=== PATIENT | male | born 1960 | race Caucasian/White ===

== ENCOUNTER 2016-11-19 15:04 | Emergency (ER) | payer MEDICARE ==
[~2016-11-19] VITALS: Ht 182.9 cm; Wt 106.6 kg
[~2016-11-19 15:04] MED LIST: ADDERAL20 MG ORAL; CIPROFLOXACIN500 M2 ORAL; KEFLEX500 MG ORAL; LEVOXYL50 MCG ORAL; METRONIDAZOLE500 MG ORAL; NORCO1 E1 ORAL; STRIBILD TABLE1 EACH PO; UNOBMED; VICODIN ES 7.51 EAC1 ORAL; ZOFRAN ODT4 MG ORAL
[2016-11-19] MEDS ORDERED: Dicyclomine HCl 10mg/5ml oral soln ORAL ONE (15:45)
[2016-11-19] MEDS ORDERED: Mylanta II UD 30ml ORAL ONE (15:45)
[2016-11-19] MEDS ORDERED: Lidocaine 2% Visc 15ml soln ORAL ONE (15:45)
[2016-11-19] MEDS ORDERED: Famotidine 20 MG/ 2ML VIAL IVP ONE (15:45)
[2016-11-19 16:30] LABS: BASOPHILS % (AUTO) 1.1 % (0.0-2.0); EOSINOPHILS % (AUTO) 0.5 % (0.0-3.0); LYMPHOCYTES % (AUTO) 22.1 % (20.0-45.0); MEAN CORPUSCULAR HGB CONC 37.4 G/DL (32.0-36.0); MEAN CORPUSCULAR VOLUME 93 FL (80-99); MEAN PLATELET VOLUME 6.8 FL (6.5-10.1); MONOCYTES % (AUTO) 9.1 % (1.0-10.0); NEUTROPHILS % (AUTO) 67.2 % (45.0-75.0); PLATELET COUNT 271 K/UL (150-450); RED BLOOD COUNT 5.35 M/UL (4.70-6.10); WHITE BLOOD COUNT 10.8 K/UL (4.8-10.8)
[2016-11-19 16:49] LABS: APPEARANCE,URINE CLEAR; KETONES,URINE 1+ (NEGATIVE); LEUKOCYTE ESTERASE ,URINE 1+ (NEGATIVE); NITRITE,URINE NEGATIVE (NEGATIVE); PH,URINE 5 (4.5-8.0); PROTEIN,URINE 2+ (NEGATIVE); UROBILINOGEN,URINE 1 MG/DL (0.0-1.0)
[2016-11-19 16:53] LABS: AMORPHOUS SEDIMENT,UR FEW /LPF; BACTERIA,URINE MODERATE /HPF; CALCIUM OXALATE CRYSTALS,UR FEW /LPF; RBC,URINE 0-2 /HPF (0 - 0)
[2016-11-19 16:54] LABS: ICTOTEST NEGATIVE; MUCUS,URINE FEW /LPF (NONE/OCC)
[2016-11-19 17:05] LABS: CREATININE 1.3 mg/dL (0.7-1.2); GLOMERULAR FILTRATION RATE 57.5 mL/min (>60); TOTAL PROTEIN 8.8 g/dL (6.6-8.7)
[2016-11-19 17:06] LABS: ALBUMIN/GLOBULIN RATIO 1.2 (1.0-2.7); POTASSIUM 3.9 mEQ/L (3.4-4.9)
[2016-11-19 17:22] LABS: BILIRUBIN,DIRECT 0.2 mg/dL (0.1-0.3)
[2016-11-19 17:28] VITALS: BP 121/76
[2016-11-19] MEDS ORDERED: ZOFRAN ODT4 MG ORAL (17:46)
[2016-11-19] MEDS ORDERED: BENTYL10 MG ORAL (17:46)
[2016-11-19] MEDS ORDERED: CIPROFLOXACIN500 M2 ORAL (17:46)
[2016-11-19 18:19] VITALS: BP 121/76
--- NOTE | 2016-11-19 19:43 | Emergency Room Report ---
History of Present Illness General Chief Complaint: Diarrhea Source: Patient Present Illness HPI 56-year-old male presents to ED with abdominal pain vomiting diarrhea times one week. States he likely got it from his roommate who presented with the same symptoms a few days earlier. Patient notes cramping abdominal pain, 5/10, nonradiating. With multiple episodes of vomiting and diarrhea. Denies fevers or chills. Denies chest pain or shortness of breath. Denies recent antibiotic use. Denies recent travel. Patient does note history of HIV and states he is compliant with his medications. Has good CD4 count. PMD is Dr. Smith . No other aggravating or relieving factors. Denies any other associated symptoms Allergies: Coded Allergies: No Known Allergies (Unverified , 03/12/13) Patient History Past Medical History: HIV Past Surgical History: none Pertinent Family History: none Social History: Denies: alcohol use, drug use, smoking Immunizations: UTD Reviewed Nursing Documentation: PMH: Agreed, PSxH: Agreed Nursing Documentation-PMH Past Medical History: No History, Except For Hx Cardiac Problems: No - AIDS Hx Cancer: No Hx Gastrointestinal Problems: No Hx Neurological Problems: Yes - headaches, head trauma 1980, frontal encephalopathy Review of Systems All Other Systems: negative except mentioned in HPI Physical Exam Vital Signs Date Time Temp Pulse Resp B/P Pulse Ox O2 Delivery O2 Flow Rate FiO2 11/19/16 15:09 97.9 105 20 114/71 98 Room Air Sp02 EP Interpretation: reviewed, normal General Appearance: no apparent distress, alert, GCS 15, non-toxic Head: normocephalic, atraumatic Eyes: bilateral eye PERRL, bilateral eye normal inspection ENT: hearing grossly normal, normal pharynx, no angioedema, normal voice Neck: full range of motion, supple/symm/no masses Respiratory: chest non-tender, lungs clear, normal breath sounds, speaking full sentences Cardiovascular #1: regular rate, rhythm, no edema Cardiovascular #2: 2+ carotid (R), 2+ carotid (L), 2+ radial (R), 2+ radial (L) , 2+ dorsalis pedis (R), 2+ dorsalis pedis (L) Gastrointestinal: normal bowel sounds, non tender, soft, non-distended, no guarding, no rebound Rectal: deferred Genitourinary: normal inspection, no CVA tenderness Musculoskeletal: back normal, gait/station normal, normal range of motion, non- tender Neurologic: alert, oriented x3, responsive, motor strength/tone normal, sensory intact, speech normal Psychiatric: judgement/insight normal, memory normal, mood/affect normal, no suicidal/homicidal ideation Reflexes: 3+ bicep (R), 3+ bicep (L), 3+ tricep (R), 3+ tricep (L), 3+ knee (R) , 3+ knee (L) Skin: normal color, no rash, warm/dry, well hydrated Lymphatic: no adenopathy Medical Decision Making Diagnostic Impression: Primary Impression: Gastroenteritis Additional Impression: UTI (urinary tract infection) Qualified Codes: N39.0 - Urinary tract infection, site not specified ER Course Hospital Course 56-year-old M presents to ED with cramping abdominal pain with vomiting, diarrhea x 1 week differential diagnosis: gastritis, SBO, cholecystits, gastroenteritis Clinical course Patient placed on stretcher. On property assessment monitor. After initial history and physical I ordered labs, IV fluids, Zofran and pepcid, GI coktail Labs - no leukocytosis, Cr 1.3, LFTs normal, UA some bacteria Upon reassessment, patient states pain has improved. findings consistent with gastroenteritis. However given symptoms times one week and patient's immunocompromise state I believe he should be treated with antibiotics I feel this is a highly complex case requiring extensive working including EKG/ Rhythm strip, Xray/CT/US, Blood/urine lab work, repeat exams while in ED, and administration of strong opiates/narcotics for pain control, admission to hospital or close patient follow up. Diagnosis - gastroenteritis , UTI Stable and discharged to home with prescriptions for Zofran, Bentyl, Cipro. Followup with PMD. Return to ED if symptoms recur or worsen Labs Test 11/19/16 16:15 White Blood Count 10.8 K/UL (4.8-10.8) Red Blood Count 5.35 M/UL (4.70-6.10) Hemoglobin 18.7 G/DL (14.2-18.0) Hematocrit 50.0 % (42.0-52.0) Mean Corpuscular Volume 93 FL (80-99) Mean Corpuscular Hemoglobin 35.0 PG (27.0-31.0) Mean Corpuscular Hemoglobin Concent 37.4 G/DL (32.0-36.0) Red Cell Distribution Width 12.0 % (11.6-14.8) Platelet Count 271 K/UL (150-450) Mean Platelet Volume 6.8 FL (6.5-10.1) Neutrophils (%) (Auto) 67.2 % (45.0-75.0) Lymphocytes (%) (Auto) 22.1 % (20.0-45.0) Monocytes (%) (Auto) 9.1 % (1.0-10.0) Eosinophils (%) (Auto) 0.5 % (0.0-3.0) Basophils (%) (Auto) 1.1 % (0.0-2.0) Urine Color Brown Urine Appearance Clear Urine pH 5 (4.5-8.0) Urine Specific [place] 1.025 (1.005-1.035) Urine Protein 2+ (NEGATIVE) Urine Glucose (UA) Negative (NEGATIVE) Urine Ketones 1+ (NEGATIVE) Urine Occult Blood Negative (NEGATIVE) Urine Nitrite Negative (NEGATIVE) Urine Bilirubin 2+ (NEGATIVE) Urine Ictotest Negative Urine Urobilinogen 1 MG/DL (0.0-1.0) Urine Leukocyte Esterase 1+ (NEGATIVE) Urine RBC 0-2 /HPF (0 - 0) Urine WBC 2-4 /HPF (0 - 0) Urine Squamous Epithelial Cells None /LPF (NONE/OCC) Urine Calcium Oxalate Crystals Few /LPF (NONE) Urine Amorphous Sediment Few /LPF (NONE) Urine Bacteria Moderate /HPF (NONE) Urine Mucus Few /LPF (NONE/OCC) Urine Sperm Few /LPF (NONE) Sodium Level 138 mEQ/L (135-145) Potassium Level 3.9 mEQ/L (3.4-4.9) Chloride Level 100 mEQ/L (98-107) Carbon Dioxide Level 20 mEQ/L (20-30) Anion Gap 18 (5-15) Blood Urea Nitrogen 25 mg/dL (7-23) Creatinine 1.3 mg/dL (0.7-1.2) Estimat Glomerular Filtration Rate 57.5 mL/min (>60) Glucose Level 124 mg/dL (74-106) Calcium Level 10.0 mg/dL (8.6-10.2) Total Bilirubin 1.3 mg/dL (0.0-1.2) Direct Bilirubin 0.2 mg/dL (0.1-0.3) Aspartate Amino Transf (AST/SGOT) 32 U/L (5-40) Alanine Aminotransferase (ALT/SGPT) 29 U/L (3-41) Alkaline Phosphatase 119 U/L (40-129) Total Protein 8.8 g/dL (6.6-8.7) Albumin 4.9 g/dL (3.5-5.2) Globulin 3.9 g/dL Albumin/Globulin Ratio 1.2 (1.0-2.7) Lipase 73 U/L (< 60) Last Vital Signs Date Time Temp Pulse Resp B/P Pulse Ox O2 Delivery O2 Flow Rate FiO2 11/19/16 18:19 98.1 79 18 121/76 100 Room Air Status: improved Disposition: HOME, SELF-CARE Condition: Stable Scripts Ondansetron Odt* (ZOFRAN ODT*) 4 Mg Tab.rapdis 4 MG ORAL Q6H Y for Nausea & Vomiting, #30 TAB 0 Refills Prov: KRZYSZTOF ANGUIANO M.D. 11/19/16 Dicyclomine Hcl* (BENTYL*) 10 Mg Capsule 10 MG ORAL FOUR TIMES A DAY, #20 CAP Prov: KRZYSZTOF ANGUIANO M.D. 11/19/16 Ciprofloxacin Hcl* (CIPROFLOXACIN HCL*) 500 Mg Tablet 500 MG ORAL Q12H, #14 TAB 0 Refills Prov: KRZYSZTOF ANGUIANO M.D. 11/19/16 Patient Instructions: Colitis KRZYSZTOF ANGUIANO M.D. November 19, 2016 19:43
== END 2016-11-19 18:19 | disposition home or self-care (01) ==
LOC: EMR 16:03
DX: K52.9 Noninfective gastroenteritis and colitis, unspecified (principal); N39.0 Urinary tract infection, site not specified; B20 Human immunodeficiency virus [HIV] disease
CPT/HCPCS: 36415; 80053; 81003; 82248; 83690; 85025; 87086; 96360; 96374; 96375; 99284; J2405; S0028

== ENCOUNTER 2018-05-05 08:29 | Outpatient (CLI) | payer MEDICARE ==
[2018-05-05] VITALS (8 sets, daily range): BP systolic 114–139; BP diastolic 68–78
[~2018-05-05] VITALS: Ht 182.9 cm; Wt 108.9 kg
[~2018-05-05 08:29] MED LIST changes: +BENTYL10 MG ORAL
[2018-05-05] MEDS ORDERED: Lidocaine 1% Plain 30 ml INJ SCH (09:45)
[2018-05-05 10:06] LABS: BASOPHILS % (AUTO) 1.1 % (0.0-2.0); EOSINOPHILS % (AUTO) 2.4 % (0.0-3.0); HEMATOCRIT 46.1 % (42.0-52.0); HEMOGLOBIN 16.6 G/DL (14.2-18.0); LYMPHOCYTES % (AUTO) 44.3 % (20.0-45.0); MEAN CORPUSCULAR VOLUME 89 FL (80-99); MONOCYTES % (AUTO) 12.9 % (1.0-10.0); NEUTROPHILS % (AUTO) 39.3 % (45.0-75.0); PLATELET COUNT 285 K/UL (150-450); RED BLOOD COUNT 5.18 M/UL (4.70-6.10); RED CELL DISTRIBUTION WIDTH 10.7 % (11.6-14.8); WHITE BLOOD COUNT 5.3 K/UL (4.8-10.8)
[2018-05-05] MEDS ORDERED: TIVICAY50 MG ORAL (10:21)
[2018-05-05] MEDS ORDERED: CYMBALTA60 MG ORAL (10:21)
[2018-05-05] MEDS ORDERED: Descovy PO (10:21)
--- NOTE | 2018-05-05 11:36 | Pre-Procedure Note/Attestation ---
Pre-Procedure Note/Attestation Complete Prior to Procedure Planned Procedure: not applicable Procedure Narrative: Lumbar puncture Indications for Procedure Pre-Operative Diagnosis: suspected neurosyphillis Attestation I attest that I discussed the nature of the procedure; its benefits; risks and complications; and alternatives (and the risks and benefits of such alternatives ), prior to the procedure, with the patient (or the patient's legal sales representative facility services). I attest that, if there was a reasonable possibility of needing a blood transfusion, the patient (or the patient's legal sales representative facility services) was given the [facility] standardized written summary, pursuant to the [employer]ett [employer] Blood Safety Act ([place] Health and Safety Code # 1645, as amended). I attest that I re-evaluated the patient just prior to the surgery and that there has been no change in the patient's H&P, except as documented below: Neel Reyes MD May 05, 2018 11:36
--- NOTE | 2018-05-05 11:39 | Brief Operative Note ---
Immediate Post Operative Note Operative Note Chief Complaint: AMS Pre-op Diagnosis: suspected neurosyphillis Procedure: lumbar puncture L2-3 Post-op Diagnosis: same as pre-op Findings: consistent w/pre-op dx studies - opening pressure 14 cm H2O Surgeon: Marquita REYES Anesthesia: local Specimen: yes - 8 ml clear CSF Complications: none Condition: stable Fluids: none Implant(s) used?: No Neel Reyes MD May 05, 2018 11:39
--- NOTE | 2018-05-05 11:52 | Diagnostic Imaging Report ---
Indications: Headache Technique: Spiral acquisitions obtained through the brain. Angled axial and coronal 5 x 5 mm slices were reconstructed. Total dose length product 1464.06 mGycm. CTDI vol(s) 70.38 mGy. Dose reduction achieved using automated exposure control Comparison: 08/23/2013 Findings: There is bilateral inferior anterior frontal encephalomalacia, unchanged. No acute intracranial hemorrhage or edema. No mass effect nor midline shift. Normal for age ventricles and extra axial CSF spaces. Normal greenwood-white differentiation. Prominent cisterna magna. Visualized orbits are unremarkable. Impression: Negative for acute intracranial bleed or mass effect Bilateral inferior frontal encephalomalacia, also previously demonstrated, consistent with findings are unchanged remote insult, either ischemic or traumatic The CT scanner at [facility] is accredited by the [employer] and the scans are performed using protocols designed to limit radiation exposure to as low as reasonably achievable to attain images of sufficient resolution adequate for diagnostic evaluation.
--- NOTE | 2018-05-05 16:00 | Diagnostic Imaging Report ---
Indication: Headache, history of syphilis, suspected neurosyphilis Technique: Informed consent obtained prior to commencement of the procedure. Procedural timeout performed. Fluoroscopy used to localize optimal puncture site at L3-4. Sterile prepping and draping. Local anesthesia with 1% lidocaine. Under real-time fluoroscopic guidance, 22-gauge spinal needle advanced into the spinal canal at the L3-4 level. However, despite fluoroscopic confirmation of adequate needle position, no cerebrospinal fluid would return. Attention then turned to the L2-3 level. Local anesthesia with 1% lidocaine. 22-gauge spinal needle directed into the spinal canal via a left of midline sublaminar approach. Orthogonal fluoroscopic views confirmed adequate needle position. Spontaneous return of CSF was visualized. Opening pressure difficult to obtained due to leakage of the connector tubing resulting in necessary placement of the pressure gauge stopcock directly into the needle. Opening pressure of 14 cm of H2O was determined. Total 8 mL of clear serous spinal fluid then collected, divided into 4 vials. The needle was removed. The patient tolerated the procedure well, without immediate complication. Total fluoroscopy time 1.7 minutes. Total dose area product 49 dGycm2 Number of images: 5 Comparison: 08/23/2013 Findings: As above. Note opening pressure of 14 cm H2O Impression: Successful fluoroscopic guided lumbar puncture at the L2-3 level, yielding 8 mL of clear yellow fluid. Opening pressure 14 cm H2O
== END 2018-05-05 15:20 | disposition home or self-care (01) ==
LOC: RAD 08:29
DX: G93.89 Other specified disorders of brain (principal)
CPT/HCPCS: 36415; 70450; 82945; 84157; 85025; 85610; 85730; 86592; 87070; 87205; 87220; 89051; J2001